=== PATIENT | male | born 1975 ===

== ENCOUNTER 2018-07-05 17:18 | Emergency (ER) | payer SELFPAY ==
[2018-07-05 17:40] VITALS: BP 127/77; PULSE 65; TEMP 98.5; O2SAT 98
--- NOTE | 2018-07-05 18:55 | C.PDOC ---
History Of Present Illness 43-year-old male presents to the ED for evaluation of left big toe pain s/p trauma earlier today. Patient states he was working with his cousin to break cement. As he was using a hammer to break the cement, some of the broken rocks ended up falling onto his big toe. Patient is c/o 7/10 pain. Patient also reports prior injury to his left big toe one month ago. While playing soccer, a portion of his toenail was ripped off but he did not seek any medical attention at the time. Patient denies extremity numbness/weakness. Chief Complaint (Nursing): Lower Extremity Problem/Injury History Per: Patient History/Exam Limitations: no limitations Onset/Duration Of Symptoms: Hrs Current Symptoms Are (Timing): Still Present Additional History Per: Patient Past Medical History Reviewed: Historical Data, Nursing Documentation, Vital Signs Vital Signs: Last Vital Signs Temp 98.5 F 07/05/18 17:29 Pulse 65 07/05/18 17:29 Resp 18 07/05/18 17:29 BP 127/77 07/05/18 17:29 Pulse Ox 98 07/05/18 17:29 - Medical History PMH: Gastritis Surgical History: No Surg Hx Family History: States: Unknown Family Hx - Social History Hx Alcohol Use: Yes Hx Substance Use: No - Immunization History Hx Tetanus Toxoid Vaccination: No Hx Influenza Vaccination: No Hx Pneumococcal Vaccination: No Review Of Systems Skin: Positive for: Other (left big toe injury ) Neurological: Negative for: Weakness, Numbness Physical Exam - Physical Exam Appears: Non-toxic, No Acute Distress Skin: Normal Color, Warm, Dry Head: Atraumatic, Normacephalic Eye(s): bilateral: Normal Inspection Cardiovascular: Rhythm Regular Respiratory: Normal Breath Sounds, No Wheezing Extremity: No Normal ROM (limited, secondary to pain ), No Pedal Edema, No Calf Tenderness, Capillary Refill (less than 2 secdonds), Other (left great toe: distal portion of toemail is missing, remaining part of the nail is brittle/yellow. Abrasion at the nailbed with ecchymosis and bony point tenerness at the tip of the toe. ) Pulses: Left Dorsalis Pedis: Normal, Right Dorsalis Pedis: Normal Neurological/Psych: Oriented x3, Normal Speech, Normal Cognition, Normal Motor, Normal Sensation Gait: Steady ED Course And Treatment O2 Sat by Pulse Oximetry: 98 (on RA ) Pulse Ox Interpretation: Normal - Other Rad left foot xray X-Ray: Interpreted by Me, Viewed By Me Interpretation: unremarkable Medical Decision Making Medical Decision Making: Progress: Motrin PO given. Left foot XR ordered and reviewed D/W patient negative results but will contact him tomorrow if radiologist states otherwise patient verbalized understanding and is in agreement with plan patient is stable for discharge Disposition Counseled Patient/Family Regarding: Studies Performed, Diagnosis, Need For Followup, Rx Given - Disposition Referrals: Orthopedic Clinic at [Outside] Podiatry Clinic [Outside] Disposition: HOME/ ROUTINE Disposition Time: 20:00 Condition: STABLE Additional Instructions: Motrin as needed for pain Rest, Ice, Elevation and Compression Follow up with Podiatry clinic regarding toe nail Return to ED if symptoms worsen Prescriptions: Ibuprofen [Motrin] 600 mg PO Q8 #30 tab Instructions: Contusion (DC), Foot Sprain (DC) Forms: [employer] ([place]) - Clinical Impression Clinical Impression: Foot pain, left, Contusion - PA / CONSTRUCTION JOB TITLES / Resident Statement MD/DO has reviewed & agrees with the documentation as recorded. - Scribe Statement The provider has reviewed the documentation as recorded by the Scribe (Cherelle Lobo) All medical record entries made by the Scribe were at my direction and personally dictated by me. I have reviewed the chart and agree that the record accurately reflects my personal performance of the history, physical exam, medical decision making, and the department course for this patient. I have also personally directed, reviewed, and agree with the discharge instructions and disposition. Addendum Addendum: 07/06/18 13:27 Accession No. : [id number] Patient Name / ID : [id number] [id number] / [id number] Exam Date : 07/05/2018 18:22:43 ( Approved ) Study Comment : Sex / Age : M / 43Y Creator : Genia Sandoval Dictator : Genia Sandoval Assembler Insulator : Marketing Information Analyst : Genia Sandoval Approver2 : Report Date : 07/06/2018 09:27:49 My Comment : PROCEDURE: Radiographs of the left great toe. TECHNIQUE:: AP radiograph of the left foot, with oblique and lateral view of the left great toe. 3 view obtained. COMPARISON: None. FINDINGS: BONES: A dorsal trabecular comminuted fracture nondisplaced of the great toe distal phalanx is suspect. The overlying nail appears disrupted as well. JOINTS: Mild 1st metatarsal-phalangeal joint arthrosis SOFT TISSUES: Increased soft tissue density great toe OTHER FINDINGS: None. IMPRESSION: Nondisplaced mild comminuted fracture great toe distal phalanx. Overlying soft tissue changes as above. Other findings as above. Upon reviewing final report for xray of left great toe, patient was noted to have nondisplaced mild comminuted fracture great toe distal phalanx and overlying soft tissue changes. Attempted to contact patient with number listed (nonworking number at this time) as well as Emergency contact number . I was able to leave voicemail advising the emergency contact to inform patient to notify the ED to discuss his xray results. I will attempt to call again and will mail results if no response. 07/06/18 20:39 attempted to contact patient again at above numbers and no answer. Will have results mailed to patient and recommend ortho follow up and splinting toe by taping it to adjacent toe until ortho visit.
[2018-07-05 20:10] VITALS: RESP 20
--- NOTE | 2018-07-06 09:31 | RAD ---
PROCEDURE: Radiographs of the left great toe. TECHNIQUE:: AP radiograph of the left foot, with oblique and lateral view of the left great toe. 3 view obtained. COMPARISON: None. FINDINGS: BONES: A dorsal trabecular comminuted fracture nondisplaced of the great toe distal phalanx is suspect. The overlying nail appears disrupted as well. JOINTS: Mild 1st metatarsal-phalangeal joint arthrosis SOFT TISSUES: Increased soft tissue density great toe OTHER FINDINGS: None. IMPRESSION: Nondisplaced mild comminuted fracture great toe distal phalanx. Overlying soft tissue changes as above. Other findings as above.
== END 2018-07-05 20:09 | disposition home or self-care (01) ==
LOC: C.ER 17:18
DX: S90.212A Contusion of left great toe with damage to nail, initial encounter (principal); W22.8XXA Striking against or struck by other objects, initial encounter; M79.672 Pain in left foot